=== PATIENT | female | born 2000 | race American Indian/Alaskan Native ===

== ENCOUNTER 2021-07-27 14:05 | Emergency (ER) | payer MEDICAID ==
--- NOTE | 2021-07-27 17:06 | EDM.PDOC ---
ED HPI GENERAL MEDICAL PROBLEM - General Chief Complaint: COSMETIC COUNSELOR Problem Stated Complaint: PERSONAL REASON Time Seen by Provider: 07/27/21 16:41 Source of Information: Reports: Patient History Limitations: Reports: No Limitations - History of Present Illness INITIAL COMMENTS - FREE TEXT/NARRATIVE: HISTORY AND PHYSICAL: History of present illness: The patient is a 20 year old female who presents to the ED with complaints of vaginal itching for 3 days. The patient denies vaginal discharge. The patient states she has had a yeast infection previously and feels like it is the same type of presentation. Other than that the patient is otherwise healthy. Patient denies any fever, chills, headache, change in vision, syncope or near syncope. Denies any chest pain, back pain, shortness of breath or cough. Denies any abdominal pain, nausea, vomiting, diarrhea, constipation or dysuria. Has not noted any blood in urine or stool. Patient has been eating and drinking appropriately. Review of systems: As per history of present illness and below otherwise all systems reviewed and negative. Past medical history: As per history of present illness and as reviewed below otherwise noncontributory. Surgical history: As per history of present illness and as reviewed below otherwise noncontributory. Social history: See social history for further information Family history: As per history of present illness and as reviewed below otherwise noncontributory. Physical exam: General: Well developed and well nourished. Alert and orientated x 3. Nontoxic in appearance and in no acute distress. Vital signs are stable and have been reviewed by me. Nursing notes were reviewed. HEENT: Atraumatic, normocephalic, pupils equal and reactive bilaterally, negative for conjunctival pallor or scleral icterus, mucous membranes moist, TMs normal bilaterally, throat clear, neck supple, nontender, trachea midline. No drooling or trismus noted. No meningeal signs. No hot potato voice noted. Lungs: Clear to auscultation bilaterally. No wheezes, rales, or rhonchi. Chest nontender. Normal work of breathing, no accessory muscles used. Heart: S1S2, regular rate and rhythm without overt murmur, gallops, or rubs. No JVD. No peripheral edema Abdomen: Soft, nondistended, nontender. Normoactive bowel sounds. Negative for masses or costovertebral tenderness. Skin: Intact, warm, dry. No lesions or rashes noted. Hematologic: No petechiae or purpra. Mucosa appropriate color and normal nail bed color and refill. Extremities: Atraumatic, moves all extremities per self without difficulty or deficits, negative for cords or calf pain. Neurovascular unremarkable. Neuro: Awake, alert, oriented. Cranial nerves II through XII unremarkable. Cerebellum unremarkable. Motor and sensory unremarkable throughout. Exam nonfocal. Psychiatric: Mood and affect are appropriate. Normal thought process. Answering questions appropriately. Notes: *This patient was seen and evaluated during the 2019 SARS-CoV-2 novel coronavirus pandemic period. Community viral transmission is ongoing at time of this encounter and the emergency department is operating under pandemic response procedures. As stated above the patient presents for vaginal itching. She does not want a vaginal exam. She denies any worries about STDs. I will order trich/sharon/can and chlamydia/gonorrhea swabs or the patient to self swab. The patient is agreeable with this plan. The patient is positive for vaginal candidiasis. I will treat her with Diflucan 150mg once and she can repeat the dose in 72 hours if symptoms are still present. The patient is agreeable with this discharge plan. I have talked with the patient about today's findings, in addition to providing specific details for plan of care. Reassessment at the time of disposition demonstrates that the patient is in no acute distress. The patient is stable for discharge, counseling was provided and we discussed in great detail signs and symptoms that would prompt them to return to the Emergency Department. Medication, follow up and supportive care measures were reviewed and discussed. Voices understanding and is agreeable to plan of care. Denies any further questions or concerns at this time. Diagnostics:trich/sharon/can and chlamydia/gonorrhea swabs Prescription:Diflucan 150mg once and she can repeat the dose in 72 hours if symptoms are still present Impression: vaginal candidiasis Plan: 1. You were evaluated today on an emergent basis. Your vaginal itching was evaluated with self swabs. You do have a yeast infection. I have prescribed Diflucan 150mg by mouth once and if your symptoms have not resolved you can repeat the dose. I sent the Rx to [facility]. 2. You can alternate Tylenol and ibuprofen as needed for pain and fever management. 3. We encourage you to follow up with your primary care provider and/or recommended specialist in the next few days for re-evaluation and further care/management. 4. If your symptoms should worsen, new symptoms develop or any of the signs and symptoms we discussed should arise please return to the emergency room or call 911 (if needed). Definitive disposition and diagnosis as appropriate pending reevaluation and review of above. Abdominal Pain Score (Numeric/FACES): 5 - Related Data Allergies Allergy/AdvReac Type Severity Reaction Status Date / Time No Known Allergies Allergy Verified 07/27/21 15:16 Home Meds: Home Meds Fluconazole [Diflucan] 150 mg PO ONETIME 2 Days #2 tab 07/27/21 [Rx] Social & Family History - Tobacco Use Second Hand Smoke Exposure: No - Caffeine Use Caffeine Use: Reports: None - Recreational Drug Use Recreational Drug Use: No ED ROS GENERAL - Review of Systems Review Of Systems: Comprehensive ROS is negative, except as noted in HPI. ED EXAM, GENERAL - Physical Exam Exam: See Below (See dictation) Course - Vital Signs Last Recorded V/S: Last Vital Signs Temp 98 F 07/27/21 15:13 Pulse 87 07/27/21 15:13 Resp 20 07/27/21 15:13 BP 130/74 07/27/21 15:13 Pulse Ox 99 07/27/21 15:13 - Orders/Labs/Meds Orders: Active Orders 24 hr Category Date Time Status CHLAMYDIA AND GONORRHEA BY [facility] Stat Lab 07/27/21 17:00 Received Labs: Laboratory Tests 07/27/21 Range/Units 17:00 Elizabeth species DNA POSITIVE H (NEGATIVE) Gardnerella DNA Probe NEGATIVE (NEGATIVE) Trichomonas DNA Probe NEGATIVE (NEGATIVE) Departure - Departure Time of Disposition: 18:09 Disposition: Home, Self-Care 01 Condition: Good Clinical Impression: Elizabeth infection - Discharge Information *PRESCRIPTION DRUG MONITORING PROGRAM REVIEWED*: Not Applicable *COPY OF PRESCRIPTION DRUG MONITORING REPORT IN PATIENT DON: Not Applicable Prescriptions: Fluconazole [Diflucan] 150 mg PO ONETIME 2 Days #2 tab Instructions: Vaginal Yeast Infection, Adult Referrals: PCP,None [Primary Care Provider] - Forms: ED Department Discharge Additional Instructions: The following information is given to patients seen in the emergency department who are being discharged to home. This information is to outline your options for follow-up care. We provide all patients seen in our emergency department with a follow-up referral. The need for follow-up, as well as the timing and circumstances, are variable depending upon the specifics of your emergency department visit. If you don't have a primary care physician on staff, we will provide you with a referral. We always advise you to contact your personal physician following an emergency department visit to inform them of the circumstance of the visit and for follow-up with them and/or the need for any referrals to a consulting specialist. The emergency department will also refer you to a specialist when appropriate. This referral assures that you have the opportunity for follow-up care with a specialist. All of these measure are taken in an effort to provide you with optimal care, which includes your follow-up. Under all circumstances we always encourage you to contact your private physician who remains a resource for coordinating your care. When calling for follow-up care, please make the office aware that this follow-up is from your recent emergency room visit. If for any reason you are refused follow-up, please contact the [facility] Emergency Department at and asked to speak to the emergency department charge nurse. [facility] - Primary Care [address] [place] [address] [id number] [address] [address] Plan: 1. You were evaluated today on an emergent basis. Your vaginal itching was evaluated with self swabs. You do have a yeast infection. I have prescribed Diflucan 150mg by mouth once and if your symptoms have not resolved you can repeat the dose. I sent the Rx to [place] [facility]. 2. You can alternate Tylenol and ibuprofen as needed for pain and fever management. 3. We encourage you to follow up with your primary care provider and/or recommended specialist in the next few days for re-evaluation and further care/management. 4. If your symptoms should worsen, new symptoms develop or any of the signs and symptoms we discussed should arise please return to the emergency room or call 911 (if needed). Sepsis Event Note (ED) - Evaluation Sepsis Screening Result: No Definite Risk - Focused Exam Vital Signs: Vital Signs Temp Pulse Resp BP Pulse Ox 07/27/21 15:13 98 F 87 20 130/74 99 - My Orders Last 24 Hours: My Active Orders 07/27/21 17:00 CHLAMYDIA AND GONORRHEA BY [facility]MA Stat - Assessment/Plan Last 24 Hours: My Active Orders 07/27/21 17:00 CHLAMYDIA AND GONORRHEA BY [facility]MA Stat
== END 2021-07-27 18:29 | disposition home or self-care (01) ==
LOC: MW.ED 14:05
DX: B37.3 Candidiasis of vulva and vagina (principal)
CPT/HCPCS: 87480; 87491; 87510; 87591; 87660; 99283